=== PATIENT | female | born 1985 | race Two or more races ===

== ENCOUNTER 2018-07-18 21:17 | Inpatient (IN) | payer OTHER ==
[2018-07-18] MEDS ORDERED: MISOPROSTOL 200 MCG TAB PO PRN (21:45)
[2018-07-18] MEDS ORDERED: AMMONIA AROMATIC 1 EACH AMP IH PRN (21:45)
[2018-07-18] MEDS ORDERED: OXYTOCIN/RINGERS LACTATE 1,000 ML IV PRN (21:45)
[2018-07-18] MEDS ORDERED: LIDOCAINE 1% 300 MG/30 ML SDV SC PRN (21:45)
[2018-07-18] MEDS ORDERED: OLIVE OIL 118 ML BTL MISC PRN (21:45)
[2018-07-18] MEDS ORDERED: TERBUTALINE SULFATE 1 MG/ML VIAL IV PRN (21:45)
[2018-07-18] MEDS ORDERED: LR 1,000 ML IV PRN (21:45)
[2018-07-18] MEDS ORDERED: EPSOM SALT 454 GM TP PRN (21:45)
[2018-07-18] MEDS ORDERED: IBUPROFEN 600 MG TAB PO PRN (21:45)
--- NOTE | 2018-07-18 21:49 | PDGENHP ---
History and Physical History and Physical: CARE: [facility] HPI: Patient is a 32 yo G 1 P 0 @ 37.3 weeks that presents to L&D with complaints of SROM and strong uterine contractions. EDC: 08/05/18 which is based on LMP: 10/29/17 which is known and consistent with Ultrasound at 10 weeks. Her is complicated by: 2nd trimester bleeding, low-lying placenta which resolved at 29 weeks, alpha-thalassemia carrier (FOB neg) Review of Systems: Constitutional: Denies any fever, chills, or fatigue HEENT: denies any visual changes, difficulty swallowing, hearing loss Cardiovascular: Denies any chest pain, palpitations, leg swelling Respiratory: denies any cough, wheezing, or shortness of breathe GI: Denies any nausea, vomiting, diarrhea, constipation : denies any dysuria, urgency, frequency, vaginal bleeding Musculoskeletal: denies any muscle or bone pain Skin: denies any rashes Neuro: denies any headache, seizures, lightheadedness, dizziness, or loss of consciousness Psychiatric: denies any depression, anxiety, or SI/HI thoughts HISTORY: Previous OB history: nulliparous 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: , 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 Family history: MGF stroke, sister bipolar, mom RA Past medical history: leaky gut, hx HSV 1 Past surgical history: bilateral breast implants, L foot surgery Medications: PNV, Marydel 3, folate, probiotics Allergies (list reaction): NKDA LABS: Rh: A+ ABS: Neg Rubella: Immune HbsAg: NR HIV: NR VDRL: NR 1hr: pt declined 1 hour, normal glucose levels x 2 weeks monitoring GC: Neg Chlamydia: Neg Pap: Normal 01/2018 GBS: neg BMI: (prepreg) <25 PHYSICAL EXAM: Constitutional: WN, A&Ox3 HEENT: normocephalic atraumatic, supple Heart: RRR, no murmur Chest: CTA-B Skin: warm, dry, intact Abdomen: Soft, nontender, gravid SVE: 4/80/-1 Extremities: no edema, negative homans sign Neuro: grossly normal Psych: normal affect assessment: FHT baseline 130, +accels, no decels, moderate variability Contractions: toco q 1-2 min Assessment: 1) 32 yo G 1 P 0 with IUP@ 37weeks 3 days. 2) spontaneous labor after PROM 3) GBS neg 4) Cat 1 FHR tracing Plan: 1) Admit to L&D 2) Labor epidural PRN 3) Anticipate
[2018-07-18] MEDS ORDERED: AMMONIA AROMATIC 1 EACH AMP IH ONE ×2 (22:03→23:17)
[2018-07-18] MEDS ORDERED: TERBUTALINE SULFATE 1 MG/ML VIAL ONE ×2 (22:03→23:17)
[2018-07-18] MEDS ORDERED: MISOPROSTOL 200 MCG TAB ONE ×2 (22:03→23:17)
[2018-07-18] MEDS ORDERED: OLIVE OIL 118 ML BTL MISC ONE ×2 (22:03→23:17)
[2018-07-18] MEDS ORDERED: OXYTOCIN 10 UNIT/ML VIAL ONE ×2 (22:03→23:17)
[2018-07-18] MEDS ORDERED: LIDOCAINE 1% 300 MG/30 ML SDV ONE ×2 (22:03→23:17)
[2018-07-18] MEDS ORDERED: PHENYLEPHRINE HCL 100 MCG/ML SYR ONE (22:12)
[2018-07-18 22:14] LABS: PLATELET COUNT 201 10^3/uL (150-400)
[2018-07-18] MEDS ORDERED: fentaNYL 2MCG/ML/BUP 0.1% RTU 100 ML EP SCH ×2 (22:30→23:45)
[2018-07-18] MEDS ORDERED: LR 500 ML IV SCH (23:45)
--- NOTE | 2018-07-18 23:48 | PDANEPAE ---
ANE Past Medical History - Pulmonary History Hx Oxygen in Use at Home: No - Endocrine History Hx Diabetes: No ANE Review of Systems Review of Systems: ANE Patient History - Allergies Allergies/Adverse Reactions: No Known Allergies Allergy (Verified 11/24/15 10:19) - Home Medications Home Medications: Ofloxin Opth 11/24/15 [Last Taken Unknown] - Smoking Hx Smoking Status: Never smoked ANE Labs/Vital Signs - Labs Result Diagrams: 07/18/18 22:00
[2018-07-18] MEDS ORDERED: METOCLOPRAMIDE 10 MG/2 ML VIAL IVP PRN (23:50)
[2018-07-18] MEDS ORDERED: PHENYLEPHRINE HCL 100 MCG/ML SYR IVP PRN (23:50)
[2018-07-18] MEDS ORDERED: NALOXONE HCL 0.4 MG/ML INJ IVP PRN (23:50)
[2018-07-18] MEDS ORDERED: ONDANSETRON 4 MG/2 ML VIAL IVP PRN (23:50)
--- NOTE | 2018-07-18 23:50 | PREANESOB ---
Obstetric Pre-Anesthesia Info - General Info Proposed Procedure: labor epidural : 1 Para: 0 MARIO: 08/05/18 - Info Status: Premature FHR Pattern: Reassuring - Labor Status Cervical Dilation per last OB SVE: 4 Indications for Labor Analgesia: Pain Control Labor Epidural: Yes Anesthesia Allergies/Adverse Reactions: Allergy/AdvReac Type Severity Reaction Status Date / Time No Known Allergies Allergy Verified 11/24/15 10:19 Home Medications: Medication Instructions Recorded Cephalexin [Keflex (RX)] 500 mg PO TID #30 cap 11/21/15 Ofloxin Opth 11/24/15 Visit Medications: Generic Name Dose Route Start Last Admin Trade Name Freq PRN Reason Stop Dose Admin Ammonia (Aromatic Spirit) 1 each 07/18/18 21:45 Ammonia Aromatic IH 07/28/18 21:44 ONCE PRN Fainting Lactated Ringer's 1,000 mls @ 0 mls/hr 07/18/18 21:45 Lr IV 07/19/18 21:44 PRN PRN SEE PROTOCOL CONDITIONS Protocol Per Protocol Oxytocin/Lactated Ringer's 1,000 mls @ 0 mls/hr 07/18/18 21:45 Pitocin 20 Units/Lr (Premix) IV PRN PRN Post bleeding As Directed Fentanyl/Bupivacaine HCl 100 mls @ 0 mls/hr 07/18/18 22:30 Fentanyl/Bupivacaine/Ns 2 Mcg/Ml 0.1% (Premix EP 07/28/18 22:29 CONT MARA Protocol As Directed Ibuprofen 600 mg 07/18/18 21:45 Motrin PO ONCE PRN post , pain Lidocaine HCl 300 mg 07/18/18 21:45 Lidocaine Hcl 1% SC 01/14/19 21:44 ONCE PRN episiotomy Magnesium Sulfate 454 gm 07/18/18 21:45 Epsom Salt TP 01/14/19 21:44 Q1H PRN perineal discomfort Misoprostol 800 - 1,000 mcg 07/18/18 21:45 Cytotec PO 01/14/19 21:44 ONCE PRN Vaginal Atony/Bleeding [place] Oil 118 ml 07/18/18 21:45 Sweet Oil MISC 01/14/19 21:44 ONCE PRN perineal massage Terbutaline Sulfate 0.25 mg 07/18/18 21:45 Brethine IV 01/14/19 21:44 ONCE PRN Tachysystole Discontinued Medications Generic Name Dose Route Start Last Admin Trade Name Moraima PRN Reason Stop Dose Admin Ammonia (Aromatic Spirit) Confirm 07/18/18 22:03 Ammonia Aromatic Administered 07/18/18 22:04 Dose 1 each IH .STK-MED ONE Ammonia (Aromatic Spirit) Confirm 07/18/18 23:17 Ammonia Aromatic Administered 07/18/18 23:18 Dose 1 each IH .STK-MED ONE Lidocaine HCl Confirm 07/18/18 22:03 Lidocaine Hcl 1% Administered 07/18/18 22:04 Dose 300 mg .ROUTE .STK-MED ONE Lidocaine HCl Confirm 07/18/18 23:17 Lidocaine Hcl 1% Administered 07/18/18 23:18 Dose 300 mg .ROUTE .STK-MED ONE Misoprostol Confirm 07/18/18 22:03 Cytotec Administered 07/18/18 22:04 Dose 1,000 mcg .ROUTE .STK-MED ONE Misoprostol Confirm 07/18/18 23:17 Cytotec Administered 07/18/18 23:18 Dose 1,000 mcg .ROUTE .STK-MED ONE [place] Oil Confirm 07/18/18 22:03 Sweet Oil Administered 07/18/18 22:04 Dose 118 ml MISC .STK-MED ONE [place] Oil Confirm 07/18/18 23:17 Sweet Oil Administered 07/18/18 23:18 Dose 118 ml MISC .STK-MED ONE Oxytocin Confirm 07/18/18 22:03 Pitocin Administered 07/18/18 22:04 Dose 40 unit .ROUTE .STK-MED ONE Oxytocin Confirm 07/18/18 23:17 Pitocin Administered 07/18/18 23:18 Dose 40 unit .ROUTE .STK-MED ONE Phenylephrine HCl Confirm 07/18/18 22:12 Neosynephrine Administered 07/18/18 22:13 Dose 1,000 mcg .ROUTE .STK-MED ONE Terbutaline Sulfate Confirm 07/18/18 22:03 Brethine Administered 07/18/18 22:04 Dose 1 mg .ROUTE .STK-MED ONE Terbutaline Sulfate Confirm 07/18/18 23:17 Brethine Administered 07/18/18 23:18 Dose 1 mg .ROUTE .STK-MED ONE - Anesthesia History Response to Local Anesthetics: Not Applicable Anesthesia & Operative History: No Prior Problems - Focused Exam Neck exam: FROM Mallampati Score: Class 1 Mouth exam: normal dental/mouth exam Pulmonary: no respiratory distress Cardiovascular: regular rate and rhythym Labs: 07/18/18 22:00 Patient ABO/Rh A POSITIVE 07/18/18 22:00 - Plan Consent Signed and on Chart: Yes Patient/Guardian Understands and Agrees to Plan: Yes Urgent/Emergent Case: Charisse shaw completed preop but documented later for safe timely pt care
--- NOTE | 2018-07-19 01:39 | OBDEL ---
Info Type: Vaginal Presentation at Delivery: Vertex L&D Analgesia/Anesthesia Type: Epidural GBS+: No - Hospital Course Intrapartum: 07/19/18 01:37 Mom progressed rapidly to complete using ANA for comfort. FOB and postdoctoral scholar at bedside. FHT reassuring. Indications for Delivery: Spontaneous Labor, SROM Vaginal Delivery - Delivery Provider Delivery Physician/CNM: Shalini Guerrero - Labor and Delivery Onset of Contractions Date: 07/18/18 Onset of Contractions Time: 20:00 Onset of Contractions Type: Spontaneous Rupture of Membranes Date: 07/18/18 Rupture of Membranes Time: 05:30 Rupture of Membranes Type: Spontaneous Amniotic Fluid Color: Clear Dilation Complete Date: 07/18/18 Dilation Complete Time: 23:30 Placenta Delivery Date: 07/19/18 Placenta Delivery Time: 01:03 Total Hours of Labor: 5 Laceration: 1st Degree Repair: 3-0, Chromic Vaginal Sponge Count Correct: Yes Vaginal Needle Count Correct: Yes Vaginal Sweep Performed: Yes EBL: 250 Delivery Events: None Delivery Comment: head delivered over intact perineum, shoulders and body followed atraumatically with gentle traction and maternal pushing effort. Data MARIO: 08/05/18 Gestational Age: 37 week(s) and 4 day(s) Boo Delivery Date: 07/19/18 Delivery Time: 00:56 Sex of Infant: Male Score (1 Min): 7 Score (5 Min): 9 ICD10 Worksheet Patient Problems: Problems Problem Status Onset 37 weeks gestation of Acute (normal spontaneous vaginal delivery) Acute SPROM (prolonged spontaneous rupture of membranes) Acute - ICD10 Problem Qualifiers (1) (normal spontaneous vaginal delivery)
[2018-07-19] MEDS ORDERED: ACETAMINOPHEN 325 MG TAB PO PRN (01:44)
[2018-07-19] MEDS: IBUPROFEN 600 MG TAB PO PRN ×3 (07:49→20:27)
[2018-07-19] MEDS: DOCUSATE SODIUM 100 MG CAP PO PRN ×2 (07:49→20:27)
--- NOTE | 2018-07-19 21:05 | POSTANESTH ---
Post Anesthetic Evaluation Cardiovascular Status: Normal, Stable Respiratory Status: Normal, Stable Level of Consciousness/Mental Status: Can Participate in Eval, Alert and Oriented Pain Control: Adequate, Prn Tx Ordered Nausea/Vomiting Control: Adequate, Prn Tx Ordered Complications Possibly Related to Anesthesia: None Noted (Placenta Delivery time & Epidural End Time 07/19/18 01:03)
[2018-07-20] MEDS: IBUPROFEN 600 MG TAB PO PRN ×3 (05:44→19:54)
--- NOTE | 2018-07-20 14:07 | OBPP ---
Progress Note Assessment/Plan: Assessment: Plan: 07/20/18 14:06 Stable PPD #1 Establishing P) Continue medication for pain relief. Discharge home tomorrow Subjective/ Course: 07/20/18 14:05 Doing very well. Happy with . Baby was nursing during the visit and was latched well. Bleeding minimal, denies pain. Plans to discharge home tomorrow Objective: 07/18/18 22:00 Patient ABO/Rh A POSITIVE 07/18/18 22:00 Temp Pulse Resp BP Pulse Ox 36.8 C 87 16 91/59 L 100 07/20/18 08:00 07/20/18 08:00 07/20/18 08:00 07/20/18 08:00 07/19/18 03:28 Nipples intact bilaterally; breasts soft Neg Hanny's Uterine Position/Fundal Height: Umbilicus -2 Uterine Tone: Firm
[2018-07-21] MEDS: IBUPROFEN 600 MG TAB PO PRN ×2 (05:11→11:16)
[2018-07-21 08:27] VITALS: BP 104/73
--- NOTE | 2018-07-21 11:31 | OBGCSDC ---
General Delivery Information - General Info : 1 Para: 1 Abortions: 0 Type: Vaginal L&D Analgesia/Anesthesia Type: Epidural, Nitrous Admission Date: 07/18/18 Labs: Patient ABO/Rh A POSITIVE 07/18/18 22:00 Hct 39.3 % (38.0-47.0) 07/18/18 22:00 - Hospital Course Intrapartum: 07/19/18 01:37 Mom progressed rapidly to complete using NAA for comfort. FOB and cardio clinician at bedside. FHT reassuring. : 07/20/18 14:05 Doing very well. Happy with . Baby was nursing during the visit and was latched well. Bleeding minimal, denies pain. Plans to discharge home tomorrow 07/21/18 11:30 Doing well. Pain management effective with PO medications. Breast feeding well. Adequate support at home. Vaginal - Delivery Provider Delivery Physician/CNM: Shalini Guerrero - Diagnosis Labor: Spontaneous Rupture of Membranes Type: Spontaneous Amniotic Fluid Color: Clear Laceration: 1st Degree Repair: 3-0, Chromic Delivery Events: None - Delivery EBL: 250 [place] Data MARIO: 08/05/18 Gestational Age: 37 week(s) and 6 day(s) Boo Delivery Date: 07/19/18 Delivery Time: 00:56 Sex of Infant: Male [place] Weight (gm): 3288 g Score (1 Min): 7 Score (5 Min): 9 Discharge Information - Discharge Information Instruction/Follow Up: Two Weeks, Four Weeks, Six Weeks
== END 2018-07-21 15:00 | disposition home or self-care (01) | DRG 807 ==
LOC: FLD 21:17 → FOB 07-19 04:45
PROVIDERS: ADMIT Advanced Practice Midwife; ATTEND Advanced Practice Midwife
PROC: 0HQ9XZZ Repair Perineum Skin, External Approach (ICD-10-PCS; principal; 2018-07-19)
PROC: 10E0XZZ Delivery of Products of Conception, External Approach (ICD-10-PCS; principal; 2018-07-19)
DX: O70.0 First degree perineal laceration during delivery (principal); Z3A.37 37 weeks gestation of pregnancy; Z37.0 Single live birth; Z14.8 Genetic carrier of other disease
CPT/HCPCS: J2370; J2590; J3105